=== PATIENT | male | born 1955 | race Caucasian/White ===

== ENCOUNTER 2018-03-12 16:37 | Emergency (ER) | payer OTHER ==
[~2018-03-12] VITALS: Ht 167.6 cm; Wt 62.7 kg
[~2018-03-12 16:37] MED LIST: ASPI-891 PO; GLYB5 PO; MELO-107 PO; OMEG-135 PO; SIMV-261 PO
[2018-03-12 17:03] LABS: GLUCOSE,POINT OF CARE 153 MG/DL (70-110)
[2018-03-12] MEDS: INDOMETHACIN 25 MG CAPSULE PO ONE (18:55)
[2018-03-12 18:58] VITALS: BP 135/95
== END 2018-03-12 19:05 | disposition home or self-care (01) ==
LOC: EMS 16:40
DX: M10.9 Gout, unspecified (principal); M79.89 Other specified soft tissue disorders; M19.90 Unspecified osteoarthritis, unspecified site; E11.9 Type 2 diabetes mellitus without complications; E78.00 Pure hypercholesterolemia, unspecified; I11.9 Hypertensive heart disease without heart failure; Z79.82 Long term (current) use of aspirin

== ENCOUNTER 2020-04-23 16:28 | Inpatient (IN) | payer OTHER ==
[~2020-04-23] VITALS: Ht 162.6 cm; Wt 59.3 kg
[~2020-04-23 16:28] MED LIST changes: +ASPI-1149 PO; -ASPI-891 PO
[2020-04-23 18:12] LABS: BASOPHILS % (AUTO) 0.2 % (0.0-2.0); EOSINOPHILS % (AUTO) 0.1 % (1.0-6.0); HEMOGLOBIN 14.9 g/dL (13.5-17.5); LYMPHOCYTES # (AUTO) 1.6 K/uL (1.0-4.8); LYMPHOCYTES % (AUTO) 23.8 % (22.0-44.0); MEAN CORPUSCULAR HEMOGLOBIN 34.4 pg (26.0-34.0); MEAN CORPUSCULAR HGB CONC 33.9 G/dL (31.0-37.0); MEAN CORPUSCULAR VOLUME 101 fL (80-100); MONOCYTES # (AUTO) 1.1 K/uL (0.1-1.0); MONOCYTES % (AUTO) 16.7 % (2.0-9.0); NEUTROPHILS # (AUTO) 3.9 K/uL (1.8-7.7); NEUTROPHILS % (AUTO) 59.2 % (40.0-70.0); PLATELET COUNT (AUTO) 410 K/uL (150-450); RED BLOOD CELL COUNT(AUTO) 4.34 MIL/uL (4.50-5.90); RED CELL DISTRIBUTION WIDTH 13.8 % (11.5-14.5)
[2020-04-23 18:25] LABS: D-DIMER 0.52 mg/L FEU (0.00-0.50); INR 0.9 (0.9-1.1); PROTHROMBIN TIME 10.1 SEC (9.4-11.6)
[2020-04-23 18:53] LABS: CHLORIDE 101 mmol/L (98-107); POTASSIUM 3.6 mmol/L (3.5-5.1); SODIUM SERUM 135 mmol/L (136-145)
[2020-04-23 18:54] LABS: ALANINE AMINOTRANSFERASE 42 U/L (12-78); ALBUMIN 3.1 g/dL (3.4-5.0); ALKALINE PHOSPHATASE 92 U/L (46-116); ANION GAP 6 mmol/L (8-16); ASPARTATE AMINOTRANSFERASE 71 U/L (15-37); BILIRUBIN,TOTAL 0.4 mg/dL (0.1-1.0); CALCIUM, TOTAL 8.6 mg/dL (8.8-10.5); CARBON DIOXIDE 28 mmol/L (22-29); CREATINE KINASE, TOTAL ONLY 275 U/L (39-308); GLOMERULAR FILTR. RATE CALC > 60 mL/min (>60); TOTAL PROTEIN, SERUM 8.4 g/dL (6.4-8.2); UREA NITROGEN, BLOOD 14 mg/dL (7-18)
[2020-04-23 18:58] LABS: GLUCOSE,RANDOM 45 mg/dL (70-110)
[2020-04-23] MEDS ORDERED: DEXTROSE 50%-WATER 25 GM/50 ML SYRINGE IVP ONE (19:00)
[2020-04-23 19:07] LABS: B-TYPE NATRIURETIC PEPTIDE 7 pg/mL (0-100)
[2020-04-23] MEDS ORDERED: ONDANSETRON HCL 4 MG/2 ML VIAL IVP PRN ×2 (19:15→21:00)
[2020-04-23] MEDS ORDERED: 0.9% SODIUM CHLORIDE 10 ML SYRINGE IVP PRN (19:15)
[2020-04-23] MEDS ORDERED: ACETAMINOPHEN 325 MG TABLET PO PRN ×2 (19:15→21:00)
[2020-04-23 20:08] LABS: C-REACTIVE PROTEIN QUANT 5.87 mg/dL (0.00-0.30); FERRITIN 559 ng/mL (26-388); LACTATE DEHYDROGENASE 366 U/L (85-227)
[2020-04-23 20:12] LABS: GLUCOSE,POINT OF CARE 290 MG/DL (70-110)
[2020-04-23] MEDS ORDERED: BISACODYL 10 MG RECTAL RECTAL SUPPOSITORY PR PRN (21:00)
[2020-04-23] MEDS ORDERED: ZOLPIDEM TARTRATE 5 MG TABLET PO PRN (21:00)
[2020-04-23] MEDS ORDERED: MAGNESIUM HYDROXIDE SUSPENSION 30 ML UDCUP PO PRN (21:00)
[2020-04-23] MEDS ORDERED: HYDROCODONE/ACETAMINOPHEN 5-325 MG TABLET PO PRN (21:00)
[2020-04-23] MEDS ORDERED: MORPHINE SULFATE 2 MG/ML SYRINGE IVP PRN (21:00)
[2020-04-23] MEDS ORDERED: DEXTROSE 5%-0.9% SODIUM CHL 1,000 ML IV ONE (21:00)
[2020-04-23 21:07] LABS: COVID AG,FIA SOURCE NASOPHARYNGEAL
[2020-04-23] MEDS: ENOXAPARIN SODIUM 30 MG/0.3 ML PF SYRINGE SQ SCH (21:53)
[2020-04-23] MEDS: DOCUSATE SODIUM 100 MG CAPSULE PO SCH (21:53)
[2020-04-23] MEDS: ZINC SULFATE 220 MG CAPSULE PO SCH (21:53)
[2020-04-23] MEDS: ASCORBIC ACID 500 MG TABLET PO SCH (21:53)
[2020-04-23 22:25] VITALS: BP 138/87
[2020-04-23] MEDS ORDERED: SODIUM CHLORIDE 0.9% 250 ML IV ONE (23:08)
[2020-04-23] MEDS: AZITHROMYCIN 500 MG/NS 250 ML IV SCH (23:35)
[2020-04-24] MEDS: CHOLECALCIFEROL (VIT D3) 2,000 UNITS [50 MCG] TABLET PO SCH ×3 (00:07→21:08)
[2020-04-24 00:41] VITALS: BP 115/75
[2020-04-24 04:10] LABS: GLUCOMETER DEV NAME(LOC) 5S.2B; GLUCOSE,POINT OF CARE 128 MG/DL (70-110)
[2020-04-24 04:28] VITALS: BP 111/70
[2020-04-24 06:25] LABS: HEMATOCRIT 40.1 % (41-53); HEMOGLOBIN 13.7 g/dL (13.5-17.5); MEAN CORPUSCULAR HEMOGLOBIN 34.5 pg (26.0-34.0); MEAN CORPUSCULAR HGB CONC 34.1 G/dL (31.0-37.0); MEAN CORPUSCULAR VOLUME 101 fL (80-100); PLATELET COUNT (AUTO) 352 K/uL (150-450); RED BLOOD CELL COUNT(AUTO) 3.96 MIL/uL (4.50-5.90); RED CELL DISTRIBUTION WIDTH 13.8 % (11.5-14.5)
[2020-04-24 07:20] VITALS: BP 103/62
[2020-04-24 07:28] LABS: ALANINE AMINOTRANSFERASE 37 U/L (12-78); ALBUMIN 2.6 g/dL (3.4-5.0); ALKALINE PHOSPHATASE 81 U/L (46-116); ANION GAP 6 mmol/L (8-16); ASPARTATE AMINOTRANSFERASE 57 U/L (15-37); BILIRUBIN,TOTAL 0.5 mg/dL (0.1-1.0); C-REACTIVE PROTEIN QUANT 4.94 mg/dL (0.00-0.30); CALCIUM, TOTAL 8.4 mg/dL (8.8-10.5); CARBON DIOXIDE 26 mmol/L (22-29); CHLORIDE 102 mmol/L (98-107); CREATININE 1.01 mg/dL (0.60-1.30); FERRITIN 509 ng/mL (26-388); GLOMERULAR FILTR. RATE CALC > 60 mL/min (>60); GLUCOSE,RANDOM 110 mg/dL (70-110); LACTATE DEHYDROGENASE 355 U/L (85-227); POTASSIUM 4.2 mmol/L (3.5-5.1); SODIUM SERUM 134 mmol/L (136-145); TOTAL PROTEIN, SERUM 7.3 g/dL (6.4-8.2); UREA NITROGEN, BLOOD 10 mg/dL (7-18)
[2020-04-24] MEDS: DEXAMETHASONE SOD PHOS 4 MG/ML VIAL IVP SCH (07:50)
[2020-04-24] MEDS: PANTOPRAZOLE SODIUM 40 MG DR TABLET PO SCH (07:50)
[2020-04-24] MEDS: DOCUSATE SODIUM 100 MG CAPSULE PO SCH ×3 (07:50→21:05)
[2020-04-24] MEDS: SIMVASTATIN 40 MG TABLET PO SCH (07:50)
[2020-04-24] MEDS: ZINC SULFATE 220 MG CAPSULE PO SCH ×2 (07:51→21:05)
[2020-04-24] MEDS: ASCORBIC ACID 500 MG TABLET PO SCH ×2 (07:51→21:05)
[2020-04-24] MEDS: ASPIRIN 325 MG DR TABLET PO SCH (07:51)
[2020-04-24] MEDS: ENOXAPARIN SODIUM 30 MG/0.3 ML PF SYRINGE SQ SCH ×2 (07:52→21:05)
[2020-04-24 08:11] LABS: BAND NEUTROPHILS % (MANUAL) 1 % (0-5); EOSINOPHILS % (MANUAL) 1 % (1-6); LYMPHOCYTES % (MANUAL) 36 % (22-44); MONOCYTES % (MANUAL) 7 % (2-9); SEGMENTED NEUTROPHILS % 55 % (40-70)
[2020-04-24 10:32] VITALS: BP 112/72
[2020-04-24 12:41] LABS: GLUCOMETER DEV NAME(LOC) 5N.3; GLUCOSE,POINT OF CARE 226 MG/DL (70-110)
[2020-04-24 12:41] LABS: GLUCOMETER DEV NAME(LOC) 5N.3; GLUCOSE,POINT OF CARE 274 MG/DL (70-110)
[2020-04-24 12:42] LABS: GLUCOMETER DEV NAME(LOC) 5N.3; GLUCOSE,POINT OF CARE 253 MG/DL (70-110)
[2020-04-24 14:52] VITALS: BP 116/66
[2020-04-24 15:52] LABS: GLUCOMETER DEV NAME(LOC) 5S.2B; GLUCOSE,POINT OF CARE 112 MG/DL (70-110)
[2020-04-24 19:28] LABS: GLUCOMETER DEV NAME(LOC) 5N.3; GLUCOSE,POINT OF CARE 282 MG/DL (70-110)
[2020-04-24 19:28] LABS: GLUCOMETER DEV NAME(LOC) 5S.2B; GLUCOSE,POINT OF CARE 290 MG/DL (70-110)
[2020-04-24 20:10] VITALS: BP 115/71
[2020-04-24] MEDS: AZITHROMYCIN 500 MG/NS 250 ML IV SCH (22:35)
[2020-04-24 23:28] LABS: GLUCOMETER DEV NAME(LOC) 5S.2B; GLUCOSE,POINT OF CARE 208 MG/DL (70-110)
[2020-04-25 00:12] VITALS: BP 110/69
[2020-04-25 04:02] VITALS: BP 113/72
[2020-04-25 07:01] LABS: BASOPHILS % (AUTO) 0.2 % (0.0-2.0); EOSINOPHILS % (AUTO) 0 % (1.0-6.0); HEMATOCRIT 38.4 % (41-53); LYMPHOCYTES # (AUTO) 0.7 K/uL (1.0-4.8); LYMPHOCYTES % (AUTO) 11.2 % (22.0-44.0); MEAN CORPUSCULAR HGB CONC 33.9 G/dL (31.0-37.0); MEAN CORPUSCULAR VOLUME 100 fL (80-100); MONOCYTES # (AUTO) 0.7 K/uL (0.1-1.0); MONOCYTES % (AUTO) 11.3 % (2.0-9.0); NEUTROPHILS # (AUTO) 5.1 K/uL (1.8-7.7); NEUTROPHILS % (AUTO) 77.3 % (40.0-70.0); PLATELET COUNT (AUTO) 412 K/uL (150-450); RED BLOOD CELL COUNT(AUTO) 3.82 MIL/uL (4.50-5.90); RED CELL DISTRIBUTION WIDTH 13.6 % (11.5-14.5)
[2020-04-25 07:26] LABS: ALANINE AMINOTRANSFERASE 37 U/L (12-78); ALBUMIN 2.4 g/dL (3.4-5.0); ALKALINE PHOSPHATASE 81 U/L (46-116); ANION GAP 6 mmol/L (8-16); ASPARTATE AMINOTRANSFERASE 38 U/L (15-37); BILIRUBIN,TOTAL 0.4 mg/dL (0.1-1.0); C-REACTIVE PROTEIN QUANT 3.79 mg/dL (0.00-0.30); CALCIUM, TOTAL 8.4 mg/dL (8.8-10.5); CARBON DIOXIDE 24 mmol/L (22-29); CHLORIDE 104 mmol/L (98-107); CREATININE 0.87 mg/dL (0.60-1.30); FERRITIN 547 ng/mL (26-388); GLOMERULAR FILTR. RATE CALC > 60 mL/min (>60); GLUCOSE,RANDOM 139 mg/dL (70-110); LACTATE DEHYDROGENASE 296 U/L (85-227); POTASSIUM 4.1 mmol/L (3.5-5.1); SODIUM SERUM 134 mmol/L (136-145); TOTAL PROTEIN, SERUM 7.1 g/dL (6.4-8.2); UREA NITROGEN, BLOOD 14 mg/dL (7-18)
[2020-04-25 07:52] VITALS: BP 112/78
[2020-04-25 08:01] LABS: GLUCOMETER DEV NAME(LOC) 5N.3; GLUCOSE,POINT OF CARE 121 MG/DL (70-110)
[2020-04-25] MEDS: ASPIRIN 325 MG DR TABLET PO SCH (10:00)
[2020-04-25] MEDS: CHOLECALCIFEROL (VIT D3) 2,000 UNITS [50 MCG] TABLET PO SCH (10:00)
[2020-04-25] MEDS: DEXAMETHASONE SOD PHOS 4 MG/ML VIAL IVP SCH (10:00)
[2020-04-25] MEDS: ENOXAPARIN SODIUM 30 MG/0.3 ML PF SYRINGE SQ SCH (10:00)
[2020-04-25] MEDS: ASCORBIC ACID 500 MG TABLET PO SCH (10:00)
[2020-04-25] MEDS: PANTOPRAZOLE SODIUM 40 MG DR TABLET PO SCH (10:00)
[2020-04-25] MEDS: SIMVASTATIN 40 MG TABLET PO SCH (10:00)
[2020-04-25] MEDS: DOCUSATE SODIUM 100 MG CAPSULE PO SCH (10:00)
[2020-04-25] MEDS: ZINC SULFATE 220 MG CAPSULE PO SCH (10:00)
[2020-04-25 10:48] VITALS: BP 108/68
[2020-04-25 11:46] VITALS: BP 136/76
[2020-04-25] MEDS ORDERED: ASCO500 PO (13:08)
[2020-04-25] MEDS ORDERED: CHOL100018 PO (13:09)
[2020-04-25] MEDS ORDERED: AZIT-104 PO (13:10)
[2020-04-25] MEDS ORDERED: DEXA2 PO (13:12)
[2020-04-25] MEDS ORDERED: ZINC220C14 PO (13:13)
[2020-04-25] MEDS ORDERED: APIX2.5T PO (13:14)
[2020-04-25 15:39] VITALS: BP 126/82
== END 2020-04-25 17:52 | disposition home or self-care (01) | DRG 137 ==
LOC: EMS 16:28 → 5N 19:59
PROVIDERS: ADMIT Internal Medicine; ATTEND Internal Medicine
DX: U07.1 COVID-19 (principal); J12.89 Other viral pneumonia; E11.649 Type 2 diabetes mellitus with hypoglycemia without coma; E78.5 Hyperlipidemia, unspecified; M10.9 Gout, unspecified; E87.1 Hypo-osmolality and hyponatremia; M19.90 Unspecified osteoarthritis, unspecified site; I10 Essential (primary) hypertension; E78.00 Pure hypercholesterolemia, unspecified; Z79.899 Other long term (current) drug therapy; R65.10 Systemic inflammatory response syndrome (SIRS) of non-infectious origin without acute organ dysfunction
CPT/HCPCS: 82728; 83615; 84145; 85379; 86140; 87426; 93005; J0456; J1100; J1650; J7042; J7050; 36415-L1; 36415-TC; 71045-TC